=== PATIENT | female | born 1970 | race Caucasian/White ===

== ENCOUNTER 2018-08-28 12:19 | Inpatient (IN) | payer OTHER ==
[2018-08-28] MEDS ORDERED: Sodium Chloride 0.9% 1,000 ML IV STA (12:43)
[2018-08-28] MEDS ORDERED: Albuterol-Ipratrop 3 mg / 0.5 (3 ml) UD IH STA ×3 (12:43→12:45)
[2018-08-28] MEDS ORDERED: Magnesium Sulfate 2 gm/50 ml 2 GM/50 ML BAG IVPB ONE (12:44)
[2018-08-28] MEDS ORDERED: Albuterol-Ipratrop 3 mg / 0.5 (3 ml) UD ONE ×2 (12:58→13:28)
[2018-08-28] MEDS ORDERED: Magnesium Sulfate 2 gm/50 ml 2 GM/50 ML BAG ONE (12:58)
--- NOTE | 2018-08-28 13:08 | ED PDOC ---
HPI: SOB/CHF/COPD Time Seen by Provider: 08/28/18 12:39 Chief Complaint (Provider): Shortness of breath History Per: Patient History/Exam Limitations: no limitations Onset/Duration Of Symptoms: Days (x2) Current Symptoms Are (Timing): Still Present Associated Symptoms: Productive Cough (green sputum ) Recently: Treated By A Physician (Seen by PMD and was given IM steriods) Additional Complaint(s): Lidia Bethea is a 48 year old female with a past medical history of asthma who was brought to the emergency department by EMS for shortness of breath and a productive cough with green sputum. Patient was seen by her PMD and was given IM steroids but had no improvement. PMD: Perry Hopper Past Medical History Reviewed: Historical Data, Nursing Documentation, Vital Signs - Medical History PMH: Anemia, Asthma, CHF (WHEN HAD PNEUMONIA 2014), Pneumonia Denies: Chronic Kidney Disease - Family History Family History: States: Unknown Family Hx - Home Medications Home Medications: Ambulatory Orders Medication Instructions Recorded Budesonide/Formoterol Fumarate 10.2 gm PO DAILY 07/08/16 [Symbicort 160-4.5 Mcg Inhaler] Cyanocobalamin (Vitamin B-12) 1,000 mcg PO DAILY 07/08/16 [B-12] Ibuprofen [Advil] 100 mg PO DAILY PRN 07/08/16 - Allergies Allergies/Adverse Reactions: Allergies Allergy/AdvReac Type Severity Reaction Status Date / Time No Known Allergies Allergy Verified 07/01/16 08:26 Review of Systems ROS Statement: Except As Marked, All Systems Reviewed And Found Negative Constitutional: Negative for: Fever Respiratory: Positive for: Cough, Shortness of Breath, Sputum (Green), Wheezing Physical Exam - Reviewed Nursing Documentation Reviewed: Yes Vital Signs Reviewed: Yes - Physical Exam Appears: Positive for: Well Head Exam: Positive for: ATRAUMATIC, NORMOCEPHALIC Skin: Positive for: Normal Color, Warm, Dry Eye Exam: Positive for: Normal appearance, EOMI, PERRL ENT: Positive for: Normal ENT Inspection Neck: Positive for: Normal Cardiovascular/Chest: Positive for: Tachycardia (with regular rate). Negative for: Murmur Respiratory: Positive for: Rhonchi, Wheezing (Expiratory), Respiratory Distress (Mild) Gastrointestinal/Abdominal: Positive for: Normal Exam, Soft. Negative for: Tenderness Back: Positive for: Normal Inspection Extremity: Positive for: Normal ROM. Negative for: Tenderness, Calf Tenderness, Deformity, Swelling Neurologic/Psych: Positive for: Alert, Oriented (x3). Negative for: Motor/Sensory Deficits - Laboratory Results Result Diagrams: 08/28/18 13:10 08/28/18 13:10 - ECG Pulse Ox Interpretation: Other (Patient desaturates to 93% of oxygen) - Progress Re-evaluation Time: 14:46 Condition: Improved (Improved but still wheezing) Medical Decision Making Medical Decision Making: Initial Time: 12:39 Initial Plan: --EKG --CMP --CBC with differential --Chest portable [RAD] --Duoneb 3 m/0.5 mg (3 ml) UD --Magnesium 2 GM/100 ml --SOLU-Medrol --NS 1L --Peak Flow PRE/POST TX ----- Scribe Attestation: Documented by Srikanth Chen, acting as a scribe for Cordell Macias MD Provider Scribe Attestation: All medical record entries made by the Scribe were at my direction and personally dictated by me. I have reviewed the chart and agree that the record accurately reflects my personal performance of the history, physical exam, medical decision making, and the department course for this patient. I have also personally directed, reviewed, and agree with the discharge instructions and disposition. Disposition - Clinical Impression Clinical Impression: Exacerbation of asthma - Patient ED Disposition Is Patient to be Admitted: Yes - Disposition Disposition Time: 14:46 Condition: FAIR - Pt Status Changed To: Hospital Disposition Of: Observation - POA Present On Arrival: None
--- NOTE | 2018-08-28 13:15 | RAD ---
Date of service: 08/28/2018 HISTORY: cough COMPARISON: 07/01/2016 FINDINGS: LUNGS: No active pulmonary disease. PLEURA: No significant pleural effusion identified, no pneumothorax apparent. CARDIOVASCULAR: Normal. OSSEOUS STRUCTURES: No significant abnormalities. VISUALIZED UPPER ABDOMEN: Normal. OTHER FINDINGS: None. IMPRESSION: No active disease.
[2018-08-28 13:27] LABS: BASO % 0.2 % (0.0-2.0); HEMOGLOBIN 12.9 g/dL (12.0-16.0); LYMPH # 0.6 K/uL (1.0-4.3); LYMPH % 3.2 % (20.0-40.0); MEAN CELL VOLUME 94.3 fl (81.0-99.0); MEAN CORPUSCULAR HEMOGLOBIN 31.9 pg (27.0-31.0); MEAN CORPUSCULAR HGB CONC 33.9 g/dL (33.0-37.0); MEAN PLATELET VOLUME 8.2 fl (7.2-11.7); MONO # 0.9 K/uL (0.0-0.8); MONO % 4.8 % (0.0-10.0); NEUT # 16.9 K/uL (1.8-7.0); NEUT % 91.8 % (50.0-75.0); PLATELET COUNT 286 K/uL (130-400); RBC 4.03 Mil/uL (3.80-5.20); RED CELL DISTRIBUTION WIDTH 13.3 % (11.5-14.5); WHITE BLOOD COUNT 18.4 K/uL (4.8-10.8)
[2018-08-28 13:41] LABS: ALB/GLOB RATIO 1.3 (1.0-2.1); ALBUMIN 4.2 g/dL (3.5-5.0); ALT/SGPT 14 U/L (9-52); AST/SGOT 28 U/L (14-36); BLOOD UREA NITROGEN 8 mg/dl (7-17); CALCIUM 9.5 mg/dL (8.4-10.2); GFR NON-AFRICAN AMERICAN > 60
[2018-08-28] MEDS ORDERED: Potassium Chloride 20 mEq ER Tab PO ONE ×2 (14:07→15:56)
[2018-08-28 14:44] LABS: ANISOCYTOSIS SLIGHT; LARGE PLATELETS PRESENT; LYMPHOCYTE 7 % (20-50); MONOCYTE 5 % (0-10); NEUTROPHIL 88 % (42-75); OVALOCYTES MODERATE; PLATELET ESTIMATE NORMAL (NORMAL); TEARDROP CELLS SLIGHT; TOTAL CELLS COUNTED 100
--- NOTE | 2018-08-28 14:48 | CARD ---
APPROVED REPORT Date of service: 08/28/2018 EKG Measurement Heart [id number] ID [id number] <Conclusion> Sinus tachycardia Otherwise normal ECG
[2018-08-28] MEDS ORDERED: Albuterol 0.083% Inhal Sol (2.5 mg/3 mL) UD IH STA (17:31)
[2018-08-28] MEDS ORDERED: Albuterol 0.083% Inhal Sol (2.5 mg/3 mL) UD ONE (18:11)
[2018-08-28] MEDS ORDERED: Albuterol-Ipratrop 3 mg / 0.5 (3 ml) UD INH STA (22:54)
[2018-08-29] MEDS: Albuterol-Ipratrop 3 mg / 0.5 (3 ml) UD INH SCH ×6 (01:00→23:50)
[2018-08-29] MEDS ORDERED: methylPREDNISolone 60 MG in Sodium Chloride 0.9% 50 ML IVP SCH (04:00)
[2018-08-29] MEDS ORDERED: Influenza Vaccine (5 YR UP)/PF 60 MCG/0.5 ML SYR IM ONE (06:00)
[2018-08-29 06:11] VITALS: BMI 29.8
[2018-08-29] MEDS: Fluticasone-Salmeterol 100-50mcg Diskus IH SCH ×2 (08:33→21:22)
[2018-08-29] MEDS ORDERED: Patient's Own Med (Budesonide/Formoterol Fumarate [Symbicort 80-4.5 Mcg Inhaler] 2 PUFF) IH SCH (09:00)
[2018-08-29 09:11] LABS: HEMOGLOBIN 13.4 g/dL (12.0-16.0); MEAN CELL VOLUME 92.7 fl (81.0-99.0); MEAN CORPUSCULAR HEMOGLOBIN 32.1 pg (27.0-31.0); MEAN CORPUSCULAR HGB CONC 34.6 g/dL (33.0-37.0); RBC 4.18 Mil/uL (3.80-5.20); RED CELL DISTRIBUTION WIDTH 13.5 % (11.5-14.5); WHITE BLOOD COUNT 19.8 K/uL (4.8-10.8)
[2018-08-29 09:26] LABS: BLOOD UREA NITROGEN 9 mg/dl (7-17); CALCIUM 9.2 mg/dL (8.4-10.2); GFR NON-AFRICAN AMERICAN > 60
[2018-08-29] MEDS: Enoxaparin 40 mg Syringe SC SCH (11:10)
[2018-08-29] MEDS: Pantoprazole 40 mg EC Tab PO SCH (11:10)
[2018-08-29] MEDS ORDERED: Albuterol-Ipratrop 3 mg / 0.5 (3 ml) UD INH STA (11:44)
--- NOTE | 2018-08-29 12:21 | CP.PCM.HP ---
<Sultan Cristela - Last Filed: 08/29/18 12:45> History of Present Illness - History of Present Illness History of Present Illness: 48 yo female with a pmhx of asthma presented to [facility] ED by EMS on 08/28/18 with c/o shortness of breath and productive cough for 2 days. Patient was seen her by her PCP Dr. Hopper and given solu-medrol IM but her shortness of breath did not improved and came to ED. Denies any fever, chills, chest pain, headache, dizziness, GI or complaints. Denies any hx intubation due to asthma. Patient received multiple doses of duoneb, solumedrol 125 mg once and mag sulfate 2 gm. ROS: all 12 systems reviewed and negative except as mentioned in HPI PMHX: asthma, anemia, seasonal allergies PSHX: hysterectomy Social hx: quit smoking 2 months ago. Smoked cigarettes 1 PPD x 20 yrs. Drinks socially. Denies other drug uses. Family hx: Brother of CAD Medications: reviewed, on chart Allergies: NKDA Present on Admission - Present on Admission Any Indicators Present on Admission: No Review of Systems - Review of Systems All systems: reviewed and no additional remarkable complaints except Past Patient History - Past Medical History & Family History Past Medical History?: Yes - Past Social History Smoking Status: Former Smoker - CARDIAC Hx Congestive Heart Failure: Yes (WHEN HAD PNEUMONIA 2015) - PULMONARY Hx Respiratory Disorders: Yes - NEUROLOGICAL Hx Neurological Disorder: No - HEENT Hx HEENT Problems: No - RENAL Hx Chronic Kidney Disease: No - ENDOCRINE/METABOLIC Hx Endocrine Disorders: No - HEMATOLOGICAL/ONCOLOGICAL Hx Anemia: Yes - INTEGUMENTARY Hx Dermatological Problems: No - MUSCULOSKELETAL/RHEUMATOLOGICAL Hx Musculoskeletal Disorders: No Hx Falls: No - GASTROINTESTINAL Hx Gastrointestinal Disorders: No - GENITOURINARY/GYNECOLOGICAL Hx Genitourinary Disorders: No - PSYCHIATRIC Hx Psychophysiologic Disorder: No Hx Substance Use: No - SURGICAL HISTORY Hx Surgeries: No - ANESTHESIA Hx Anesthesia: No Hx Anesthesia Reactions: No Hx Malignant Hyperthermia: No Meds Allergies/Adverse Reactions: Allergies Allergy/AdvReac Type Severity Reaction Status Date / Time No Known Allergies Allergy Verified 07/01/16 08:26 Physical Exam - Constitutional Appears: Non-toxic, No Acute Distress - Head Exam Head Exam: ATRAUMATIC, NORMOCEPHALIC - Eye Exam Eye Exam: EOMI, Normal appearance, PERRL - ENT Exam ENT Exam: Mucous Membranes Moist, Normal Exam - Neck Exam Neck exam: Positive for: Normal Inspection. Negative for: Meningismus - Respiratory Exam Respiratory Exam: absent: Accessory Muscle Use, Rales, Rhonchi, Respiratory Distress Additional comments: B/L scattered wheezing with prolong expiratory phase. - Cardiovascular Exam Cardiovascular Exam: REGULAR RHYTHM, RRR, +S1, +S2 - GI/Abdominal Exam GI & Abdominal Exam: Normal Bowel Sounds, Soft. absent: Tenderness - Extremities Exam Extremities exam: Positive for: normal inspection. Negative for: calf tenderness, pedal edema - Neurological Exam Neurological exam: Alert, CN II-XII Intact, Oriented x3 - Psychiatric Exam Psychiatric exam: Normal Affect, Normal Mood - Skin Skin Exam: Normal Color, Warm Results - Vital Signs Recent Vital Signs: Last Vital Signs Temp 97.5 F L 08/29/18 12:00 Pulse 90 08/29/18 12:00 Resp 18 08/29/18 12:00 BP 119/68 08/29/18 12:00 Pulse Ox 99 08/29/18 12:00 - Labs Result Diagrams: 08/29/18 09:01 08/29/18 09:01 Labs: Laboratory Results - last 24 hr 08/28/18 08/28/18 08/29/18 13:10 13:10 09:01 WBC 18.4 H 19.8 H RBC 4.03 4.18 Hgb 12.9 13.4 Hct 38.0 38.8 MCV 94.3 92.7 MCH 31.9 H 32.1 H MCHC 33.9 34.6 RDW 13.3 13.5 Plt Count 286 306 MPV 8.2 Neut % (Auto) 91.8 H Lymph % (Auto) 3.2 L [place] % (Auto) 4.8 Eos % (Auto) 0.0 Baso % (Auto) 0.2 Neut # (Auto) 16.9 H Lymph # (Auto) 0.6 L [place] # (Auto) 0.9 H Eos # (Auto) 0.0 Baso # (Auto) 0.0 Neutrophils % (Manual) 88 H Lymphocytes % (Manual) 7 L Monocytes % (Manual) 5 Platelet Estimate Normal Large Platelets Present Anisocytosis (manual) Slight Macrocytosis (manual) Slight Tear Drop Cells Slight Ovalocytes Moderate Sodium 142 Potassium 3.4 L Chloride 112 H Carbon Dioxide 20 L Anion Gap 13 BUN 8 Creatinine 0.7 Est GFR ( Amer) > 60 Est GFR (Non-Af Amer) > 60 Random Glucose 105 Calcium 9.5 Total Bilirubin 0.2 AST 28 ALT 14 Alkaline Phosphatase 42 Total Protein 7.6 Albumin 4.2 Globulin 3.4 Albumin/Globulin Ratio 1.3 08/29/18 09:01 WBC RBC Hgb Hct MCV MCH MCHC RDW Plt Count MPV Neut % (Auto) Lymph % (Auto) [place] % (Auto) Eos % (Auto) Baso % (Auto) Neut # (Auto) Lymph # (Auto) [place] # (Auto) Eos # (Auto) Baso # (Auto) Neutrophils % (Manual) Lymphocytes % (Manual) Monocytes % (Manual) Platelet Estimate Large Platelets Anisocytosis (manual) Macrocytosis (manual) Tear Drop Cells Ovalocytes Sodium 139 Potassium 4.5 Chloride 111 H Carbon Dioxide 21 L Anion Gap 12 BUN 9 Creatinine 0.7 Est GFR ( Amer) > 60 Est GFR (Non-Af Amer) > 60 Random Glucose 122 H Calcium 9.2 Total Bilirubin AST ALT Alkaline Phosphatase Total Protein Albumin Globulin Albumin/Globulin Ratio Assessment & Plan (1) Exacerbation of asthma Status: Acute (2) Cough Status: Acute - Assessment and Plan (Free Text) Assessment: Assessment: 48 yo female pmhx asthma presented to [facility] ED by EMS on 08/28/18 with c/o shortness of breath and productive cough for 2 days. Patient is admitted for asthma exacerbation. Plan: Admit to Telemetry Duoneb q4hrs Solumedrol 60 mg iv q6h Resume home medications Monitor vitals and respiratory status Labs Patient seen and examined with Dr. Hopper during rounds Sultan Archibald, pgy-2. <Perry Hopper - Last Filed: 08/29/18 20:32> Results - Vital Signs Recent Vital Signs: Last Vital Signs Temp 98.4 F 08/29/18 19:48 Pulse 90 08/29/18 19:48 Resp 20 08/29/18 19:48 BP 111/62 08/29/18 19:48 Pulse Ox 100 08/29/18 19:48 - Labs Result Diagrams: 08/29/18 09:01 08/29/18 09:01 Labs: Laboratory Results - last 24 hr 08/29/18 08/29/18 09:01 09:01 WBC 19.8 H RBC 4.18 Hgb 13.4 Hct 38.8 MCV 92.7 MCH 32.1 H MCHC 34.6 RDW 13.5 Plt Count 306 Sodium 139 Potassium 4.5 Chloride 111 H Carbon Dioxide 21 L Anion Gap 12 BUN 9 Creatinine 0.7 Est GFR ( Amer) > 60 Est GFR (Non-Af Amer) > 60 Random Glucose 122 H Calcium 9.2 Assessment & Plan - Assessment and Plan (Free Text) Assessment: Patient was personally seen and examined by me in rounds with residents. Available labs and diagnostic data reviewed. Case, Patient's condition and management plan discussed with residents in rounds. Agree with resident's progress note. Plan: As ordered.
[2018-08-29] MEDS: Promethazine/Cod 6.25mg-10mg/5ml Syr UD PO PRN ×2 (12:40→21:27)
[2018-08-29] MEDS: Albuterol HFA 90 mcg/actuation (8 g) IH PRN (12:41)
[2018-08-30] MEDS: Albuterol-Ipratrop 3 mg / 0.5 (3 ml) UD INH SCH ×5 (04:47→19:33)
[2018-08-30] MEDS: Pantoprazole 40 mg EC Tab PO SCH (08:57)
[2018-08-30] MEDS: Enoxaparin 40 mg Syringe SC SCH (08:57)
[2018-08-30] MEDS: Fluticasone-Salmeterol 100-50mcg Diskus IH SCH ×2 (08:57→22:25)
[2018-08-30] MEDS: Promethazine/Cod 6.25mg-10mg/5ml Syr UD PO PRN (10:34)
[2018-08-30] MEDS ORDERED: Albuterol-Ipratrop 3 mg / 0.5 (3 ml) UD INH PRN (13:47)
[2018-08-30 14:14] LABS: ABG ALLEN TEST YES; ARTERIAL BLOOD GAS HCO3 23.5 mmol/L (21-28); ARTERIAL BLOOD GAS O2 CAPACITY 17.7 mL/dL (16-24); ARTERIAL BLOOD GAS O2 CONTENT 16.9 ML/dL (15-23); ARTERIAL BLOOD GAS O2 SAT 95.3 % (95-98); ARTERIAL BLOOD GAS PCO2 33 mm/Hg (35-45); ARTERIAL BLOOD GAS PH 7.43 (7.35-7.45); ARTERIAL BLOOD GAS PO2 60 mm/Hg (80-100); ARTERIAL BLOOD GAS TCO2 22.9 mmol/L (22-28)
[2018-08-30] MEDS: Promethazine/Cod 6.25mg-10mg/5ml Syr UD PO SCH ×3 (15:49→22:26)
[2018-08-30] MEDS: levoFLOXacin 500 mg in D5W 500 MG/100 ML BAG IVPB SCH (15:50)
[2018-08-30] MEDS: guaiFENesin-DM 600-30 mg ER Tab PO SCH (16:01)
--- NOTE | 2018-08-30 18:23 | CP.PCM.PN ---
<Sultan Cristela - Last Filed: 08/30/18 18:21> Subjective - Date & Time of Evaluation Date of Evaluation: 08/30/18 Time of Evaluation: 06:55 - Subjective Subjective: Patient seen and examined this AM during rounds with Dr. Hopper. No acute overnight events. Patient reports her shortness of breath and chest tightness improved but not completely resolved. Denies any other complaints. Objective - Vital Signs/Intake and Output Vital Signs (last 24 hours): Temp Pulse Resp BP Pulse Ox 98.3 F 86 20 132/69 93 L 08/30/18 15:45 08/30/18 15:45 08/30/18 15:45 08/30/18 15:45 08/30/18 15:45 - Medications Medications: Current Medications Acetylcysteine (Mucomyst 10% 30 Ml) 3 ml IH RTID RO[place]IE Albuterol (Ventolin Hfa 90 Mcg/Actuation (8 G)) 2 puff IH Q6 PRN PRN Reason: Shortness of Breath Last Admin: 08/29/18 12:41 Dose: 2 puff Albuterol/Ipratropium (Duoneb 3 Mg/0.5 Mg (3 Ml) Ud) 3 ml INH Q4 ROSEMARIE Last Admin: 08/30/18 15:11 Dose: 3 ml Albuterol/Ipratropium (Duoneb 3 Mg/0.5 Mg (3 Ml) Ud) 3 ml INH RQ4 PRN PRN Reason: Shortness of Breath Enoxaparin Sodium (Lovenox) 40 mg SC DAILY ROSEMARIE; Protocol Last Admin: 08/30/18 08:57 Dose: 40 mg Folic Acid (Folic Acid) 1 mg PO DAILY ROSEM[place]IE Last Admin: 08/30/18 08:57 Dose: 1 mg Guaifenesin/Dextromethorphan (Mucinex-Dm 600-30 Mg) 1 tab PO BID ROSEMARIE Last Admin: 08/30/18 16:01 Dose: 1 tab Levofloxacin/Dextrose (Levaquin 500mg) 500 mg in 100 mls @ 100 mls/hr IVPB DAILY ROSEMARIE; Protocol Last Admin: 08/30/18 15:50 Dose: 100 mls/hr Methylprednisolone (Solu-Medrol) 60 mg IV Q6H [place]IE Last Admin: 08/30/18 16:40 Dose: 60 mg Montelukast Sodium (Singulair) 10 mg PO DAILY [facility] Last Admin: 08/30/18 08:57 Dose: 10 mg Pantoprazole Sodium (Protonix Ec Tab) 40 mg PO DAILY [facility] Last Admin: 08/30/18 08:57 Dose: 40 mg Promethazine HCl/Codeine (Phenergan/Codeine Oral Syrup) 5 ml PO Q4 [facility] Last Admin: 08/30/18 17:25 Dose: Not Given Fluticasone/Salmeterol (Advair Diskus 100/50) 1 puff IH Q12 [facility] Last Admin: 08/30/18 08:57 Dose: 1 puff - Labs Labs: 08/29/18 09:01 08/29/18 09:01 - Constitutional Appears: Non-toxic, No Acute Distress - Head Exam Head Exam: NORMAL INSPECTION - Eye Exam Eye Exam: Normal appearance - ENT Exam ENT Exam: Mucous Membranes Moist - Neck Exam Neck Exam: Normal Inspection - Respiratory Exam Respiratory Exam: NORMAL BREATHING PATTERN. absent: Accessory Muscle Use, Respiratory Distress Additional comments: scattered end expiratory wheezing. - Cardiovascular Exam Cardiovascular Exam: REGULAR RHYTHM, +S1, +S2 - GI/Abdominal Exam GI & Abdominal Exam: Soft, Normal Bowel Sounds. absent: Tenderness - Extremities Exam Extremities Exam: Normal Inspection. absent: Calf Tenderness, Pedal Edema - Neurological Exam Neurological Exam: Alert, Awake, Oriented x3 - Psychiatric Exam Psychiatric exam: Normal Affect, Normal Mood - Skin Skin Exam: Normal Color, Warm Assessment and Plan (1) Exacerbation of asthma Status: Acute (2) Cough Status: Acute - Assessment and Plan (Free Text) Assessment: Assessment: 48 yo female pmhx asthma presented to [facility] ED by EMS on 08/28/18 with c/o shortness of breath and productive cough for 2 days. Patient is admitted for asthma exacerbation. Plan: c/w Duoneb q4hrs c/w Solumedrol 60 mg iv q6h Resume home medications Monitor vitals and respiratory status AM Labs Anticipate discharge later this afternoon if patient's symptoms improved. Patient seen and examined with Dr. Hopper during rounds Sultan Archibald, pgy-2. <Perry Hopper - Last Filed: 08/31/18 10:19> Objective - Vital Signs/Intake and Output Vital Signs (last 24 hours): Temp Pulse Resp BP Pulse Ox 97.7 F 71 18 120/73 99 08/31/18 08:48 08/31/18 08:48 08/31/18 08:48 08/31/18 08:48 08/31/18 08:48 - Medications Medications: Current Medications Acetylcysteine (Mucomyst 10% 30 Ml) 3 ml IH RTID ROSEM[facility]IE Last Admin: 08/31/18 08:05 Dose: 3 ml Albuterol (Ventolin Hfa 90 Mcg/Actuation (8 G)) 2 puff IH Q6 PRN PRN Reason: Shortness of Breath Last Admin: 08/31/18 04:40 Dose: 2 puff Albuterol/Ipratropium (Duoneb 3 Mg/0.5 Mg (3 Ml) Ud) 3 ml INH RQ4 PRN PRN Reason: Shortness of Breath Albuterol/Ipratropium (Duoneb 3 Mg/0.5 Mg (3 Ml) Ud) 3 ml INH RQ4 [facility] Last Admin: 08/31/18 08:05 Dose: 3 ml Enoxaparin Sodium (Lovenox) 40 mg SC DAILY [facility]; Protocol Last Admin: 08/31/18 09:39 Dose: 40 mg Folic Acid (Folic Acid) 1 mg PO DAILY [facility] Last Admin: 08/31/18 09:31 Dose: 1 mg Guaifenesin/Dextromethorphan (Mucinex-Dm 600-30 Mg) 1 tab PO BID [facility] Last Admin: 08/31/18 09:40 Dose: 1 tab Levofloxacin/Dextrose (Levaquin 500mg) 500 mg in 100 mls @ 100 mls/hr IVPB DAILY [facility]; Protocol Last Admin: 08/31/18 09:39 Dose: 100 mls/hr Methylprednisolone (Solu-Medrol) 60 mg IV Q6H [facility] Last Admin: 08/31/18 04:41 Dose: 60 mg Montelukast Sodium (Singulair) 10 mg PO DAILY [facility] Last Admin: 08/31/18 09:40 Dose: 10 mg Pantoprazole Sodium (Protonix Ec Tab) 40 mg PO DAILY [facility] Last Admin: 08/31/18 09:40 Dose: 40 mg Promethazine HCl/Codeine (Phenergan/Codeine Oral Syrup) 5 ml PO Q4@0800 [facility] Fluticasone/Salmeterol (Advair Diskus 100/50) 1 puff IH Q12 [facility] Last Admin: 08/31/18 09:30 Dose: 1 puff - Labs Labs: 08/31/18 04:45 08/31/18 04:45 Assessment and Plan - Assessment and Plan (Free Text) Assessment: Patient was personally seen and examined by me in rounds with residents. Available labs and diagnostic data reviewed. Case, Patient's condition and management plan discussed with residents in barry ds. Agree with resident's progress note. Plan: As ordered.
[2018-08-31] MEDS: Albuterol-Ipratrop 3 mg / 0.5 (3 ml) UD INH SCH ×7 (00:10→23:47)
[2018-08-31] MEDS: Promethazine/Cod 6.25mg-10mg/5ml Syr UD PO SCH ×3 (01:52→10:00)
[2018-08-31] MEDS: Albuterol HFA 90 mcg/actuation (8 g) IH PRN (04:40)
[2018-08-31 05:48] LABS: HEMOGLOBIN 12.6 g/dL (12.0-16.0); MEAN CELL VOLUME 94.9 fl (81.0-99.0); MEAN CORPUSCULAR HEMOGLOBIN 30.9 pg (27.0-31.0); MEAN CORPUSCULAR HGB CONC 32.6 g/dL (33.0-37.0); RBC 4.06 Mil/uL (3.80-5.20); RED CELL DISTRIBUTION WIDTH 13.7 % (11.5-14.5); WHITE BLOOD COUNT 19.4 K/uL (4.8-10.8)
[2018-08-31 06:29] LABS: BLOOD UREA NITROGEN 13 mg/dl (7-17); CALCIUM 8.2 mg/dL (8.4-10.2); GFR NON-AFRICAN AMERICAN > 60
[2018-08-31] MEDS: Acetylcysteine 10% 30 ML IH SCH ×2 (08:05→21:15)
[2018-08-31 08:49] VITALS: RESP 18
[2018-08-31] MEDS: Fluticasone-Salmeterol 100-50mcg Diskus IH SCH (09:30)
[2018-08-31] MEDS: levoFLOXacin 500 mg in D5W 500 MG/100 ML BAG IVPB SCH (09:39)
[2018-08-31] MEDS: Enoxaparin 40 mg Syringe SC SCH (09:39)
[2018-08-31] MEDS: guaiFENesin-DM 600-30 mg ER Tab PO SCH (09:40)
[2018-08-31] MEDS: Pantoprazole 40 mg EC Tab PO SCH (09:40)
--- NOTE | 2018-08-31 10:37 | CP.PCM.DIS ---
Provider - Provider Date of Admission: 08/30/18 13:45 Attending physician: Perry Hopper MD Time Spent in preparation of Discharge (in minutes): 30 Diagnosis - Discharge Diagnosis (1) Exacerbation of asthma Status: Acute (2) Cough Status: Acute Hospital Course - Lab Results Lab Results: Most Recent Lab Values WBC 19.4 K/uL (4.8-10.8) H 08/31/18 04:45 RBC 4.06 Mil/uL (3.80-5.20) 08/31/18 04:45 Hgb 12.6 g/dL (12.0-16.0) 08/31/18 04:45 Hct 38.5 % (34.0-47.0) 08/31/18 04:45 MCV 94.9 fl (81.0-99.0) D 08/31/18 04:45 MCH 30.9 pg (27.0-31.0) 08/31/18 04:45 MCHC 32.6 g/dL (33.0-37.0) L 08/31/18 04:45 RDW 13.7 % (11.5-14.5) 08/31/18 04:45 Plt Count 295 K/uL (130-400) 08/31/18 04:45 MPV 8.2 fl (7.2-11.7) 08/28/18 13:10 Neut % (Auto) 91.8 % (50.0-75.0) H 08/28/18 13:10 Lymph % (Auto) 3.2 % (20.0-40.0) L 08/28/18 13:10 [place] % (Auto) 4.8 % (0.0-10.0) 08/28/18 13:10 Eos % (Auto) 0.0 % (0.0-4.0) 08/28/18 13:10 Baso % (Auto) 0.2 % (0.0-2.0) 08/28/18 13:10 Neut # (Auto) 16.9 K/uL (1.8-7.0) H 08/28/18 13:10 Lymph # (Auto) 0.6 K/uL (1.0-4.3) L 08/28/18 13:10 [place] # (Auto) 0.9 K/uL (0.0-0.8) H 08/28/18 13:10 Eos # (Auto) 0.0 K/uL (0.0-0.7) 08/28/18 13:10 Baso # (Auto) 0.0 K/uL (0.0-0.2) 08/28/18 13:10 Neutrophils % (Manual) 88 % (42-75) H 08/28/18 13:10 Lymphocytes % (Manual) 7 % (20-50) L 08/28/18 13:10 Monocytes % (Manual) 5 % (0-10) 08/28/18 13:10 Platelet Estimate Normal (NORMAL) 08/28/18 13:10 Large Platelets Present 08/28/18 13:10 Anisocytosis (manual) Slight 08/28/18 13:10 Macrocytosis (manual) Slight 08/28/18 13:10 Tear Drop Cells Slight 08/28/18 13:10 Ovalocytes Moderate 08/28/18 13:10 pCO2 33 mm/Hg (35-45) L 08/30/18 13:45 pO2 60 mm/Hg (80-100) L 08/30/18 13:45 HCO3 23.5 mmol/L (21-28) 08/30/18 13:45 ABG pH 7.43 (7.35-7.45) 08/30/18 13:45 ABG Total CO2 22.9 mmol/L (22-28) 08/30/18 13:45 ABG O2 Saturation 95.3 % (95-98) 08/30/18 13:45 ABG O2 Content 16.9 ML/dL (15-23) 08/30/18 13:45 ABG Base Excess -1.7 mmol/L (-2.0-3.0) 08/30/18 13:45 ABG Hemoglobin 13.0 g/dL (11.7-17.4) 08/30/18 13:45 ABG Carboxyhemoglobin 1.8 % (0.5-1.5) H 08/30/18 13:45 POC ABG HHb (Measured) 4.6 % (0.0-5.0) 08/30/18 13:45 ABG Methemoglobin 1.2 % (0.0-3.0) 08/30/18 13:45 ABG O2 Capacity 17.7 mL/dL (16-24) 08/30/18 13:45 Christopher Test Yes 08/30/18 13:45 A-a O2 Difference 48.0 mm/Hg 08/30/18 13:45 Hgb O2 Saturation 92.4 % (95.0-98.0) L 08/30/18 13:45 FiO2 21.0 % 08/30/18 13:45 Blood Gas Comments Room air 08/30/18 13:45 Crit Value Read Back N 08/30/18 13:45 Sodium 139 mmol/l (132-148) 08/31/18 04:45 Potassium 4.5 MMOL/L (3.6-5.0) 08/31/18 04:45 Chloride 110 mmol/L (98-107) H 08/31/18 04:45 Carbon Dioxide 26 mmol/L (22-30) 08/31/18 04:45 Anion Gap 8 (10-20) L 08/31/18 04:45 BUN 13 mg/dl (7-17) 08/31/18 04:45 Creatinine 0.7 mg/dl (0.7-1.2) 08/31/18 04:45 Est GFR ( Amer) > 60 08/31/18 04:45 Est GFR (Non-Af Amer) > 60 08/31/18 04:45 Random Glucose 135 mg/dL (65-105) H 08/31/18 04:45 Calcium 8.2 mg/dL (8.4-10.2) L 08/31/18 04:45 Total Bilirubin 0.2 mg/dl (0.2-1.3) 08/28/18 13:10 AST 28 U/L (14-36) 08/28/18 13:10 ALT 14 U/L (9-52) 08/28/18 13:10 Alkaline Phosphatase 42 U/L (38-126) 08/28/18 13:10 Total Protein 7.6 G/DL (6.3-8.2) 08/28/18 13:10 Albumin 4.2 g/dL (3.5-5.0) 08/28/18 13:10 Globulin 3.4 gm/dL (2.2-3.9) 08/28/18 13:10 Albumin/Globulin Ratio 1.3 (1.0-2.1) 08/28/18 13:10 - Hospital Course Hospital Course: 48 yo female with a pmhx of asthma presented to [facility] ED by EMS on 08/28/18 with c/o shortness of breath and productive cough for 2 days. Patient received multiple doses of duoneb, solumedrol 125 mg once and mag sulfate 2 gm in ED. Patient was admitted for asthma exacerbation. During the course of the stay, patient received duoneb q4hrs, solumedrol 60 mg q6 hrs, cough medications and Levaquin. Patient is hemodynamically stable to discharge home. Advised to f/u with [facility] in 2-3 days. Discharge Exam - Head Exam Head Exam: NORMAL INSPECTION - Eye Exam Eye Exam: Normal appearance - ENT Exam ENT Exam: Mucous Membranes Moist - Respiratory Exam Respiratory Exam: NORMAL BREATHING PATTERN. absent: Accessory Muscle Use, Rales, Rhonchi, Respiratory Distress Additional comments: some expiratory wheezing - Cardiovascular Exam Cardiovascular Exam: REGULAR RHYTHM, RRR, +S1, +S2 - GI/Abdominal Exam GI & Abdominal Exam: Normal Bowel Sounds, Soft. absent: Tenderness - Extremities Exam Extremities exam: calf tenderness, normal capillary refill, pedal pulses present - Neurological Exam Neurological exam: Alert, Oriented x3 - Psychiatric Exam Psychiatric exam: Normal Affect, Normal Mood - Skin Skin Exam: Normal Color, Warm Discharge Plan - Discharge Medications Prescriptions: Albuterol Sulfate [Ventolin Hfa] 2 puff IH Q6 PRN #1 hfa.aer.ad PRN Reason: Shortness Of Breath Albuterol/Ipratropium [Duoneb 3 mg/0.5 mg (3 ml) UD] 3 ml INH Q4 #130 neb Fluticasone/Salmeterol 100/50 [Advair Diskus 100/50] 1 puff IH Q12 #1 puff Folic Acid 1 mg PO DAILY #30 tab Montelukast [Singulair] 10 mg PO DAILY #90 tab Pantoprazole [Protonix EC Tab] 40 mg PO DAILY #14 ect Promethazine/Codeine [Phenergan/Codeine Oral Syrup] 10 ml PO Q6 PRN #28 udc PRN Reason: Cough - Follow Up Plan Condition: FAIR Disposition: HOME/ ROUTINE Instructions: Asthma, Adult (DC) Additional Instructions: follow up wit in 1 week Referrals: Perry Hopper MD [Family Provider] -
[2018-08-31 12:53] VITALS: BP 110/69; PULSE 81; TEMP 98.3; O2SAT 98
[2018-09-01] MEDS ORDERED: Promethazine/Cod 6.25mg-10mg/5ml Syr UD PO SCH (08:00)
--- NOTE | 2018-09-03 13:36 | PQF ---
PROVIDER RESPONSE TEXT: Hyperkalemia REVIEWER QUERY TEXT: Medication Correlation for Diagnosis Your help is needed in capturing diagnoses for the corresponding medications ordered. Please clarify in the documentation diagnoses for the following medication(s). Medications:K-Dur 20 meq. received [facility] the [facility] lab: K: 3.4->4,5 H and P: PMH: asthma: c/o shortness of breath and productive cough for 2 days. Patient is admitted fo r asthma exacerbation The patient's Clinical Indicators include: XX Query created by: Anali Bae on 08/31/2018 10:57 AM Electronically signed by: Perry Hopper 09/03/2018 1:33 PM
--- NOTE | 2018-09-03 13:36 | PQF ---
PROVIDER RESPONSE TEXT: Moderate persistent, not responding to outpatient therapy. Persistent cough. Requiring iv steroids an d nebulizer treatments REVIEWER QUERY TEXT: Asthma Specificity and Type Asthma is documented in the Medical Record. Please specify the type if known: Such as: -- Mild intermittent -- Mild persistent -- Moderate persistent -- Severe persistent -- Other, please specify H and P: PMH: asthma: c/o shortness of breath and productive cough for 2 days. Patient is admitted f or asthma exacerbation Advair diskus, Kiara stat x 4->Q4, Mucinex-DM, Mucomyst, Phenergan/[place], Solu-Medrol IV->Oral, O 2 simple mask The patient's Clinical Indicators include: xx Query created by: Anali Bae on 08/31/2018 10:52 AM Electronically signed by: Perry Hopper 09/03/2018 1:33 PM
== END 2018-08-31 15:00 | disposition home or self-care (01) | DRG 96 ==
LOC: H.ER 12:19 → H.ERHOLD 14:47 → H.TEL 18:24 → OBSVTOIN 08-30 13:45
PROVIDERS: ADMIT Internal Medicine; ATTEND Internal Medicine
DX: J45.41 Moderate persistent asthma with (acute) exacerbation (principal); E87.5 Hyperkalemia; Z87.891 Personal history of nicotine dependence